=== PATIENT | male | born 1945 | race Caucasian/White ===

== ENCOUNTER 2017-11-09 08:21 | Outpatient (CLI) | payer MEDICARE, OTHER ==
[~2017-11-09] VITALS: Ht 170.2 cm; Wt 132.5 kg
--- NOTE | ~2017-11-09 | OP ---
PATIENT NAME: RAVI BAH JR MEDICAL RECORD: [id number] :47 LOCATION:D.CAT ADMISSION DATE: SURGEON: JOHN ANTOINE MD DATE OF OPERATION: 11/09/2017 PROCEDURES: 1. PTCA stent left main. 2. PTCA stent RCA. 3. Selective coronary angiography. 4. Intravascular ultrasound of the RCA. INDICATION: Unstable angina and coronary artery disease. PROCEDURE IN DETAIL: After informed consent was obtained and after detailed explanation of risks, benefits, as well as alternative therapies, the patient elected to proceed with angiogram and angioplasty. The right femoral area was prepped and draped in normal sterile fashion. Right femoral artery was cannulated via modified Seldinger technique with placement of 6-Togolese sheath. All catheters exchanged through this sheath. FINDINGS: The left main is greater than 80% stenosed. This was addressed with a 4.0 x 12 mm [place] stent. Result was 0% residual stenosis. The right coronary underwent intravascular ultrasound revealing 2 areas of greater than 70% stenosis. These were covered with a 3.0 x 38 mm Anthony. Result was 0% residual stenosis. IMPRESSION: Successful percutaneous transluminal coronary angioplasty stent of the left main and right coronary artery going from 70% to 80% initial stenosis to 0% residual stenosis. TRANSINT:[id number] Voice Confirmation ID: [id number] DOCUMENT ID: [id number] JOHN ANTOINE MD at 1056 CC: [id number] DICTATION DATE: 11/09/17 1234 DIRECTOR [place]: 11/09/17 1243 DEP CLI 11/10/17 [place] [id number]
--- NOTE | ~2017-11-09 | HP ---
PATIENT: RAVI BAH JR MEDICAL RECORD: [id number] ACCOUNT: [id number] LOCATION:GER[place] : 47 ADMISSION DATE: 11/09/17 HISTORY AND PHYSICAL EXAMINATION DIAGNOSES: 1. Angina. 2. Shortness of breath, dyspnea on exertion. 3. Coronary artery disease. 4. Cardiomyopathy. 5. Hypertension. 6. Obesity. HISTORY OF PRESENT ILLNESS: This is a gentleman who presents with continued anginal symptomatology, shortness of breath. He underwent cardiac catheterization in [place] and was told that he had no problem. Reviewing the cath film, he has severe 3-vessel coronary artery disease of the RCA, left circumflex, and left main. Clearly, this is the etiology of his problem. PHYSICAL EXAMINATION: GENERAL APPEARANCE: Well-nourished, well-developed, appears stated age. Level of distress, comfortable. PSYCHIATRIC: Mental status, alert, normal affect. Orientation, oriented to time, place and person. EYES: Lids and conjunctiva, noninjected. No discharge, no pallor. ENT: Lips, teeth, gums, normal dentition. Oropharynx, no cyanosis, no pallor. NECK: Carotid arteries, bilateral normal upstroke, no bruits, no thrills. JUGULAR VEINS: No jugular venous pressure or distention. CERVICAL LYMPH NODES: Nontender, nonenlarged. THYROID: Not enlarged. Nontender. No nodules. LUNGS: Respiratory effort, unlabored. CHEST: Normal curvature. No thoracic deformity. No chest wall tenderness. Percussion, resonant. Auscultation, clear. No wheezes, no rales, no rhonchi. CARDIOVASCULAR: Precordial exam, nondisplaced. No heaves or pericardial thrills. Rate and rhythm, regular. Heart sounds, normal S1, normal S2. No S3, no gallop, no rub. Systolic murmur, not heard. Diastolic murmur, not heard. EXTREMITIES: No cyanosis, no edema. Peripheral pulses, full and equal in all extremities, except as noted. No bruits appreciated. ABDOMEN: Soft, nondistended. Normal aorta. No bruit. Nontender. No masses. Liver, nontender, no hepatomegaly. Spleen, nontender, no splenomegaly. MUSCULOSKELETAL: No joint tenderness. No joint swelling. No erythema. NEUROLOGICAL: Normal gait, normal strength, normal tone. SKIN: Warm and dry. REVIEW OF SYSTEMS: The patient reports easy bruising but reports no swollen glands. The patient reports no fever, no night sweats, no significant weight gain, no significant weight loss. No significant exercise tolerance. The patient reports no dry eyes, no irritation, no vision change. Patient reports no difficulty hearing and no ear pain. Patient reports no frequent nose bleeds or nose and sinus problems. Patient reports on arm pain on exertion. No shortness of breath while lying down. No history of heart murmur. Patient reports no cough, no wheezing or coughing up blood. Patient reports no abdominal pain, no vomiting. Normal appetite. No diarrhea and not vomiting blood. No nausea and no constipation. Patient reports no incontinence. No difficulty urinating. No hematuria. No increased frequency. Patient reports HISTORY AND PHYSICAL [id number] RAVI BAH JR no muscle aches. No weakness, no arthralgias, no back pain. No swelling of the extremities. Patient reports no abnormal mole, no jaundice, no rashes. Reports no loss of consciousness. No weakness and no numbness. No seizures, dizziness, or headaches. The patient reports no depression, no sleep disturbance, feeling safe in a relationship and no alcohol abuse. Patient reports on fatigue. Reports no runny nose or sinus pressure. No itching, no hives, and no frequent sneezing. OVERALL IMPRESSION: We will proceed with transcatheter revascularization in a staged fashion. TRANSINT:[id number] Voice Confirmation ID: [id number] DOCUMENT ID: [id number] JOHN ANTOINE MD at 1056 CC: [id number] DICTATION DATE: 11/09/17 1004 FINANCIAL OPERATIONS CLERK: 11/09/17 1029 DEP CLI 11/10/17 [place] [id number] [place] [id number]
--- NOTE | ~2017-11-09 | HEMODYNAMI ---
PATIENT:RAVI BAH JR MEDICAL RECORD: [id number] : 47 LOCATION:DJay JayCAT ADMISSION DATE: 11/09/17 Generatedon:11/09/201712:37 Patient name: RAVI BAH Patient #: [id number] SSN: : 1945 Date of study: 11/09/2017 Page: Of Hemodynamic Procedure Report Patient Data Patient Demographics Procedure consent was obtained First Name: RAVI Gender: Male Last Name: NIURKA Suffix: [facility] Initial: MARCELA : 1945 Patient #: [id number] Age: 72 year(s) Race: Unknown Additional ID: [id number] Contact details Address: [address] [place] State: [place] City: [place] Zip code: [address] Past Medical History Allergies Allergen Reaction Date Comments Reported IV contrast dye 11/09/2017 Admission Admission Data Admission Date: 11/09/2017 Admission Time: 8:21 Procedure Procedure Types Cath Procedure Diagnostic Procedure Sedation Charges Moderate Sedation up to 15 minutes PCI Procedure Coronary Stent Coronary Stent Initial x2 Procedure Description Procedure Date Procedure Date: 11/09/2017 Procedure Start Time: 12:13 Procedure End Time: 12:36 Procedure Staff Name Function Jake Hamilton MD Performing Physician Genet Wooten RT Monitor Shyam King RN Nurse Ho oDwd RT Scrub Procedure Data Cath Procedure Fluoroscopy Diagnostic fluoroscopy Total fluoroscopy Time: 3.7 time: 3.7 min min Diagnostic fluoroscopy Total fluoroscopy dose: 781 dose: 781 mGy mGy Contrast Material Contrast Material Type Amount (ml) Isovue 300 92 Entry Location Entry Primary Successful Side Size Upsize Upsize Entry Closure Succes sful Closure Location (Fr) 1 (Fr) 2 (Fr) Remarks Device Remarks Femoral Right 5 Fr 6 Fr Exoseal artery Short Estimated blood loss: 10 ml Procedure Complications No complications Procedure Medications Medication Administration Route Dosage 0.9% NaCl I.V. 100 ml/hr Oxygen etCO2 Nasal cannula 6 l/min Heparin Flush Bag added to field 2 bags (1000units/500ml NS) Lidocaine 2% added to field 20 Versed I.V. 1 mg Fentanyl I.V. 50 mcg Heparin Bolus I.V. 4000 units Lasix I.V. 40 mg Hemodynamics Rest Heart Rate: 84 (bpm) Snapshots Pre Cath Intra NCS Post Cath Vital Signs Time Heart Resp SPO2 etCO2 NIBP (mmHg) Rhythm Pain Sedation Rate (ipm) (%) (mmHg) Status Level (bpm) 12:07:18 83 23 95 23.8 189/113(153) NSR 0 (11) 10(A) , No pain 12:12:07 80 22 94 28.3 155/93(118) NSR 0 (11) 10(A) , No pain 12:16:54 80 23 94 25.4 149/89(109) NSR 0 (11) 10(A) , No pain 12:21:40 81 21 92 25.4 163/91(113) NSR 0 (11) 10(A) , No pain 12:26:31 85 19 94 27.6 170/93(119) NSR 0 (11) 10(A) , No pain 12:31:18 82 21 93 30.6 164/98(124) NSR 0 (11) 10(A) , No pain 12:36:17 82 25 94 27.6 Measuring NSR 0 (11) 10(A) , No pain 12:36:42 82 24 92 26.8 172/102(135) NSR 0 (11) 10(A) , No pain Medications Time Medication Route Dose Verified Delivered Reason Notes Effectiveness by by 12:04:04 0.9% NaCl I.V. 100 Shyam Shyam Per physician ml/hr Fernando King RN RN 12:04:25 Oxygen etCO2 6 Shyam Shyam Per physician Nasal l/min Fernando King cannula RN RN 12:04:37 Heparin Flush added 2 Shyam Shyam used for Bag to bags Fernando King procedure (1000units/500ml field RN RN NS) 12:04:50 Lidocaine 2% added 20ml Shyam Shyam for local to vial Lorigan Kathyigan anesthetic field TYLER RN 12:09:13 Versed I.V. 1 mg Shyam Shyam for sedation Fernando King RN RN 12:09:22 Fentanyl I.V. 50 Hsyam Shyam for sedation mcg Fernando Knig RN RN 12:20:09 Heparin Bolus I.V. 4000 Shyam Shyam for units Fernando King anticoagulation RN RN 12:34:24 Lasix I.V. 40 mg Shyam Shyam Per physician Fernando King RN regional engineer Log Time Note 11:45:35 Genet Wooten RT(R) sent for patient. Start room use. 11:45:36 Time tracking: Regular hours 11:45:40 Plan of Care:Hemodynamics will remain stable., Cardiac rhythm will remain stable., Comfort level will be maintained., Respiratory function will remain adequate., Patient/ family verbilizes understanding of procedure., Procedure tolerated without complication., Recovers from procedure without complications.. 11:52:03 Patient received from Pre/Post Procedure Room to CCL 1 Alert and oriented. Tansferred to table in Supine position. 11:52:05 Warm blankets applied, and ilda hugger turned on for patient comfort. 11:52:05 Correct patient and procedure confirmed by team. 11:52:07 Signed procedure consent form obtained from patient. 11:52:08 ECG and BP/O2 sat monitors applied to patient. 11:52:16 H&P Date Dictated: 11/09/2017 Within 30 days and on chart., H&P Addendum completed by physician on day of procedure. (MUST COMPLETE FOR ALL OUTPATIENTS). 12:01:31 Vital chart was started 12:02:39 Rhythm: sinus rhythm 12:03:18 Full Disclosure recording started 12:03:18 Pre-procedure instructions explained to patient. 12:03:19 Pre-op teaching completed and patient verbalized understanding. 12:03:20 Family in patients room. 12:03:22 Patient NPO since Midnight. 12:03:32 Patient allergic to IV contrast dye 12:03:36 Is the patient allergic to Iodine/contrast media? Yes. 12:03:37 Was the patient premedicated? Yes 12:03:38 Is patient on blood thinner?Yes 12:03:40 ACC The patient was administered the following blood thiners within the last 24 hours: ACCEffient 12:03:42 Patient diabetic? Yes. 12:03:43 If diabetic: On Metformin? No 12:03:46 Previous problem with sedation/anesthesia? No ? 12:03:47 Snore? Yes 12:03:48 Sleep apnea? Yes 12:03:49 Deviated septum? No 12:03:51 Opens mouth fully? Yes 12:03:51 Sticks out tongue? Yes 12:03:54 Airway obstruction? No ? 12:03:56 Dentures? Yes OUT 12:04:00 Pre procedure: right dorsailis pedis pulse 1+ Palpable, but thready & weak; easily obliterated 12:04:02 Patient pain scale 0/10 .. 12:04:04 0.9% NaCl 100 ml/hr I.V. was administered by Shyam King RN; Per physician; 12:04:09 IV patent on arrival in left forearm with 0.9% NaCl at [facility]. 12:04:11 Lab results completed and on chart. 12:04:14 Right groin area was prepped with chlora-prep and draped in sterile fashion 12:04:15 Alarms reviewed by R. N. 12:04:15 Sharps counted by scrub and verified by R.N. 12:04:25 Oxygen 6 l/min etCO2 Nasal cannula was administered by Shyam King RN; Per physician; 12:04:37 Heparin Flush Bag (1000units/500ml NS) 2 bags added to field was administered by Shyam King RN; used for procedure; 12:04:50 Lidocaine 2% 20ml vial added to field was administered by Shyam King RN; for local anesthetic; 12:06:56 Baseline sample Acquired. 12:07:27 Use device set CATH PACK 12:07:29 ACIST Syringe (42067) opened to sterile field. 12:07:29 ACIST Hand Control (42949) opened to sterile field. 12:07:30 ACIST Manifold (03320) opened to sterile field. 12:07:30 Medline Cath Pack ([id number]) opened to sterile field. 12:07:31 Bag Decanter (2002) opened to sterile field. 12:07:31 DIAGNOSTIC WIRE .035 260cm J wire (253401) opened to sterile field. 12:07:42 PERCUTANEOUS ENTRY 19GA needle opened to sterile field. 12:07:46 Use device set TAUTH PCI 12:07:48 INFLATOR Merit BasixCompak (XG6821) opened to sterile field. 12:08:50 Final Timeout: patient, procedure, and site verified with staff and physician. All members of the team are in agreement. 12:08:52 Right groin site verified by team. 12:08:54 Physical assessment completed. ASA score P 2 - A patient with mild systemic disease as per Jake Hamilton MD. 12:08:58 Sedation plan: IV Moderate Sedation Medication:Versed, Fentanyl 12::13 Versed 1 mg I.V. was administered by Shyam Kign RN; for sedation; 12:: Fentanyl 50 mcg I.V. was administered by Shyam King RN; for sedation; 12::52 Zero performed for pressure channel P1 12:13:23 Procedure started. 12:13:26 Local anesthetic to right femoral artery with Lidocaine 2% by Jake Hamilton MD.INITIAL ACCESS ONLY 12:14:03 A 5 Fr sheath was inserted into the Right Femoral artery 12:16:38 AMPLATZ Super Stiff 75cm wire ([id number]) opened to sterile field. 12:16:47 Amplatz wire advanced. 12:17:11 SHEATH 5Fr Prelude ([id number]) opened to sterile field. 12:17:38 Sheath upsized to a 6 Fr Short. 12:18:01 GUIDE 6FR XB 3.5 SH catheter ([id number]) opened to sterile field. 12:18:06 6 Fr XB 3.5 SH guide catheter was inserted over the wire 12:18:36 1st XB 3.5 SH was kinked 12:18:44 GUIDE 6FR XB 3.5 SH catheter ([id number]) opened to sterile field. 12:18:55 CHOICE PT Extra Support 182cm wire ([id number]) opened to sterile field. 12:19:03 Choice PT ES wire advanced. 12:20:09 Heparin Bolus 4000 units I.V. was administered by Shyam Kign RN; for anticoagulation; 12:20:46 Place stent Inflation Number: 1 A JANI RX 4.0 x 12 stent ([id number]) was prepped and advanced across the LMCA. The stent was deployed at 15 MARLENE for 0:06 (min:sec). 12:21:24 Inflation number: 2 The stent balloon was then re-inflated across the LMCA to 17 MARLENE for 0:06 (min:sec). 12:21:55 Balloon removed over the wire. 12:21:59 Wire removed. 12:22:01 Guide catheter removed. 12::27 GUIDE 6FR AR 2.0 SH catheter ([id number]) opened to sterile field. 12:22:35 6 Fr AR 2.0 SH guide catheter was inserted over the wire 12:23:54 CHOICE PT ES wire advanced. 12:24:08 [place] IVUS Catheter (13608C) opened to sterile field. 12:24:52 CALLED FOR BED 12:24:55 IVUS catheter advanced over wire. 12:25:07 IVUS pass to RCA lesion performed. 12:25:25 IVUS catheter removed over wire. 12:27:24 Place stent Inflation Number: 1 A JANI RX 3.0 x 38 stent ([id number]) was prepped and advanced across the Mid RCA. The stent was deployed at 17 MARLENE for 0:07 (min:sec). 12:27:33 Stent catheter was removed intact over wire. 12:27:36 Wire removed. 12:27:37 Guide catheter removed. 12:27:47 Sheath removed intact; hemostasis achieved with Exoseal to the Right Femoral artery. 12:27:50 Procedure ended.(Physican Out) 12::59 Fluoroscopy time 03.70 minutes. 12:28:03 Fluoroscopy dose: 781 mGy 12:28:03 Flurop Dose total: 781 12:28:06 Contrast amount:Isovue 300 92ml. 12:28:07 Sharps counted by scrub and verified by R.N. 12:28:08 Insertion/operative site no bleeding no hematoma. 12:28:11 Post-op/insertion site Right Femoral artery dressed using a 4 x 4 and Tegaderm. 12:28:14 Post right femoral artery:stable, clean and dry 12:28:16 Post Procedure Pulses reassessed and unchanged 12:28:19 Post-procedure physical assessment completed. ASA score P 2 - A patient with mild systemic disease as per Jake Hamilton MD. 12:28:22 Post procedure rhythm: unchanged. 12:28:27 Estimated blood loss: 10 ml 12:28:28 Post procedure instruction explained to patient.Patient verbalizes understanding. 12:28:28 Patient needs reinforcement of post procedure teaching. 12:30:05 Procedure type changed to Cath procedure, Diagnostic procedure, Sedation Charges, Moderate Sedation up to 15 minutes, PCI procedure, Coronary Stent, Coronary Stent Initial x2 12:30:10 Procedure Complication : No complications 12:30:14 See physician's report for complete and final results. 12:30:26 EXOSEAL 6Fr (EX600) opened to sterile field. 12:34:12 SHEATH 6Fr Prelude ([id number]) opened to sterile field. 12:34:24 Lasix 40 mg I.V. was administered by Shyam King RN; Per physician; 12:35:02 PATIENT GOING TO ROOM 2116 12:35:08 Procedure and supply charges have been captured, reviewed, submitted and are correct. 12:36:44 Vital chart was stopped 12:36:47 Report given to PCU. 12:36:51 Patient transfered to PCU with Bed. 12:36:58 Procedure ended. 12:36:58 Full Disclosure recording stopped 12:37:27 End room use (Document Last) Intervention Summary Intervention Notes Time ActionType Lesion and Equipment Used Action# Pressure Duration Attributes 12:20:46 Place stent LMCA JANI RX 4.0 x 1 15 00:06 12 stent ([id number]) 12:21:24 Reinflate LMCA JANI RX 4.0 x 2 17 00:07 stent 12 stent balloon ([id number]) 12:27:24 Place stent Mid RCA JANI RX 3.0 x 1 17 00:07 38 stent ([id number]) Device Usage Item Name Manufacture Quantity Catalog Number Hospital Part Current M inimal Lot# / Charge Number Stock Stock Serial# Code ACIST Syringe Acist 1 53797 396240 625184 253025 2 0 (14447) Medical Systems Inc ACIST Hand Acist 1 46999 359738 974647 824944 5 Control Medical (67484) Systems Inc ACIST Manifold Acist 1 80439 234116 867285 182077 5 (84740) Medical Systems Inc Medline Cath Cardinal 1 [id number] 247191 16457 377377 5 Spor ([id number]) Bag Decanter Microtek 1 979642 84569 002520 5 () Medical Inc. DIAGNOSTIC [place] 1 257987 224608 585876 923778 3 0 WIRE .035 260cm J wire (478303) PERCUTANEOUS Cook Medical 1 V86169 718978 852626 5 ENTRY 19GA needle INFLATOR Merit Merit 1 RM3083 423972 586274 448243 1 5 [facility] (EJ3493) AMPLATZ Super Alpine 1 [id number] 960967 690170 608989 5 Stiff 75cm Scientific wire ([id number]) SHEATH 5Fr Merit 1 [id number] 494149 877968 962905 5 Prelude Medical ([id number]) GUIDE 6FR XB Cardinal 2 [id number] 258191 515824 367413 2 3.5 SH Health catheter ([id number]) CHOICE PT Alpine 1 [id number] 179839 236058 543767 5 Extra Support Scientific 182cm wire ([id number]) JANI RX 4.0 x Medtronic 1 [id number] 185342 5236282 984577 5 [id number] 12 stent ([id number]) GUIDE 6FR [place] Medtronic 1 [id number] 977816 55951 605988 1 2.0 SH catheter ([id number]) [place] 1 [id number] 051644 713512 682513 [address] [place] IVUS Catheter ([id number]) JANI RX 3.0 x Medtronic 1 [id number] 447064 8492375 220965 5 [id number] 38 stent ([id number]) EXOSEAL 6Fr Cardinal 1 EX600 250438 019507 028309 1 0 (EX600) Health SHEATH 6Fr Merit 1 [id number] 729585 751631 523517 5 Prelude Medical ([id number]) Signature Audit [place] Stage Time Signature Unsigned Intra-Procedure 11/09/2017 Genet 12:37:56 PM Counts RT(R) Signatures Monitor : Genet Signature : Counts RT Date : Time : [facility] [address] [place] [address]
[2017-11-09] MEDS ORDERED: COREG 3.1253.125 MG PO (09:36)
[2017-11-09] MEDS ORDERED: NITROQUICK0.4 MG SL (09:36)
[2017-11-09] MEDS ORDERED: ENTRESTO 24 MG1 EACH PO ×2 (09:37→09:43)
[2017-11-09] MEDS ORDERED: EFFIENT5 MG PO (09:39)
[2017-11-09] MEDS ORDERED: BAYER CHEWABLE81 MG PO (09:39)
[2017-11-09] MEDS ORDERED: KLOR-CON M2020 MEQ PO (09:40)
[2017-11-09] MEDS ORDERED: LASIX40 MG PO (09:40)
[2017-11-09] MEDS ORDERED: GLIMEPIRIDE1 MG PO (09:41)
[2017-11-09 09:42] LABS: BASOPHILS 0.1 % (0-2); EOSINOPHILS 2.8 % (0-7); HEMATOCRIT 40.7 % (42.0-54.0); HEMOGLOBIN 13.7 g/dL (13.5-17.5); IMMATURE GRANULOCYTES 0.7 % (0-5); LYMPHOCYTES 26.7 % (15-50); MCH 31.1 pg (26.0-34.0); MCHC 33.7 g/dL (31.0-37.0); MCV 92.3 fL (80.0-100.0); MEAN PLATELET VOLUME 10.4 fL (7.4-10.4); MONOCYTES 10.4 % (2-11); NEUTROPHILS 59.3 % (40-80); PLATELET COUNT 228 10x3/uL (130-400); RBC 4.41 10x6/uL (4.20-6.10); RDW 12.4 % (11.5-14.5); WBC 9.8 10x3/uL (4.8-10.8)
[2017-11-09] MEDS ORDERED: BREO ELLIPTA 21 EACH (09:42)
[2017-11-09] MEDS ORDERED: [UNRECOGNIZED DRUG - OTHER] PO (09:42)
[2017-11-09] MEDS ORDERED: RED YEAST RICE600 MG PO (09:43)
[2017-11-09 09:56] LABS: ANION GAP 14.1 mmol/L (8-16); CALCIUM 8.6 mg/dL (8.5-10.1); CARBON DIOXIDE 26.9 mmol/L (21.0-32.0); CREATININE - SERUM 1.2 mg/dL (0.6-1.3)
[2017-11-09 10:01] VITALS: BP 155/92; BMI 45.5
[2017-11-09 13:19] VITALS: BP 149/81; Ht 170.2 cm; Wt 132.5 kg
[2017-11-09 16:59] VITALS: BP 151/77
[2017-11-09 19:00] VITALS: BP 140/71
[2017-11-10 00:26] VITALS: BP 131/66
[2017-11-10 04:00] VITALS: BP 154/78
[2017-11-10 09:24] VITALS: BP 168/99
== END 2017-11-10 09:15 | disposition home or self-care (01) ==
LOC: D.CATH 08:21 → D.M2 12:45 → D.CATH 11-10 09:15
PROVIDERS: Internal Medicine Interventional Cardiology
DX: I25.110 Atherosclerotic heart disease of native coronary artery with unstable angina pectoris (principal); I11.9 Hypertensive heart disease without heart failure; E66.9 Obesity, unspecified; Z68.42 Body mass index [BMI] 45.0-49.9, adult; Z01.812 Encounter for preprocedural laboratory examination
CPT/HCPCS: 92978; C9600 ×2

== ENCOUNTER 2017-12-11 16:40 | Inpatient (IN) | payer MEDICARE, OTHER ==
[2017-12-11] VITALS (8 sets, daily range): BP systolic 119–143; BP diastolic 59–78; BMI 45.0
[~2017-12-11] VITALS: Ht 170.2 cm; Wt 130.2 kg
--- NOTE | ~2017-12-11 | OP ---
PATIENT NAME: RAVI BAH JR MEDICAL RECORD: [id number] :47 LOCATION:D.VENUSI D.CV02 ADMISSION DATE:12/11/17 SURGEON: JOHN ANTOINE MD DATE OF OPERATION: 12/12/2017 PROCEDURES: 1. PTCA stent left circumflex. 2. PTCA stent LAD diagonal. 3. Left heart catheterization. 4. Selective angiography. 5. Left ventriculogram. 6. Bilateral selective renal angiography. INDICATION: Unstable angina and coronary artery disease. PROCEDURE IN DETAIL: After informed consent was obtained and after detailed explanation of risks, benefits as well as alternative therapies, the patient elected to proceed with angiogram and angioplasty. The right femoral area was prepped and draped in normal sterile fashion. Right femoral artery was cannulated via modified Seldinger technique with placement of 6-Emirati sheath. All catheters exchanged through this sheath. FINDINGS: 1. 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 No significant renal artery stenosis. 2. Left renal artery: The left renal artery is a solitary artery off the aorta with no significant pressure damping at the ostium. No significant renal artery stenosis. Left ventriculogram performed in standard 30-degree BURRELL view, reveals severe global hypokinesis, ejection fraction 25%. SELECTIVE CORONARY ANGIOGRAPHY: 1. Left main has previously placed stent that is widely patent. 2. Left anterior descending is widely patent. There is a relatively large diagonal system that is 100% occluded. This is a chronic total occlusion. 3. The left circumflex has a 90% stenosis proximally. There is first obtuse marginal that is totally occluded. This is a long chronic total occlusion. 4. Right coronary artery is widely patent, previously placed stents are widely patent. PTCA STENT OF THE LEFT CIRCUMFLEX: We addressed the ostium of the circumflex that was 90% stenosed with a 3.0 x 8 mm Anthony stent. We then turned our attention to the diagonal. PTCA STENT OF THE LAD DIAGONAL: The diagonal was addressed with a 2.0 x 30 mm [place] stent. Result was 0% residual throughout. OVERALL IMPRESSION: 1. Successful percutaneous transluminal coronary angioplasty stent of the left circumflex ostium going from 90% initial stenosis to 0% residual stenosis. 2. Successful percutaneous transluminal coronary angioplasty stent of the LAD diagonal going from 100% initial stenosis to 0% residual stenosis. OPERATIVE REPORT [id number] RAVI BAH JR TRANSINT:[id number] Voice Confirmation ID: [id number] DOCUMENT ID: [id number] JOHN ANTOINE MD at 1848 CC: [id number] DICTATION DATE: 12/12/17 1024 ASIC ENGINEER: 12/12/17 1451 DIS IN 12/13/17 [place] [id number] [place] [id number]
--- NOTE | ~2017-12-11 | HEMODYNAMI ---
PATIENT:RAVI BAH JR MEDICAL RECORD: [id number] : 47 LOCATION:[facility] ADMISSION DATE: 12/11/17 Generatedon:12/12/201710:27 Patient name: RAVI BAH Patient #: [id number] SSN: : 1945 Date of study: 12/12/2017 Page: Of Hemodynamic Procedure Report Patient Data Patient Demographics Procedure consent was obtained First Name: RAVI Gender: Male Last Name: NIURKA Suffix: Jr Francis Initial: MARCELA : 1945 Patient #: [id number] Age: 72 year(s) Race: Unknown Additional ID: [id number] Contact details Address: [address] [place] State: [place] City: [place] Zip code: [address] Past Medical History Allergies Allergen Reaction Date Comments Reported IV contrast dye 11/09/2017 Other allergy 12/12/2017 Iodoine dye Admission Admission Data Admission Date: 12/11/2017 Admission Time: 16:40 Room #: D.CV02 Lab Results Lab Result Date: 12/12/2017 Lab Result Time: 0:00 Biochemistry Name Units Result Min Max BUN mg/dl 15 --(--*-)-- 7 18 Creatinine mg/dl 1.1 --(--*-)-- 0.6 1.3 CBC Name Units Result Min Max Hemoglobin g/dl 12.6 -*(----)-- 13.5 17.5 Procedure Procedure Types Cath Procedure Diagnostic Procedure LHC LHC w/Coronaries Sedation Charges Moderate Sedation up to 30 minutes PCI Procedure Coronary Stent Coronary Stent Initial Coronary Stent Additional Peripheral Cath Diagnostic Procedure Abd/Extremity Renal Bilat Renal Arteriogram Procedure Description Procedure Date Procedure Date: 12/12/2017 Procedure Start Time: 9:40 Procedure End Time: 10:25 Procedure Staff Name Function Jake Hamilton MD Performing Physician Odilia Monroe RT Scrub Jose Armando Hernadez RN Nurse Oren Taylor RN Nurse Ho Dowd RT Monitor Procedure Data Cath Procedure Fluoroscopy Diagnostic fluoroscopy Total fluoroscopy Time: time: 16.4 min 16.4 min Diagnostic fluoroscopy Total fluoroscopy dose: dose: 2256 mGy 2256 mGy Contrast Material Contrast Material Type Amount (ml) Isovue 370 149 Entry Location Entry Primary Successful Side Size Upsize Upsize Entry Closure Succes sful Closure Location (Fr) 1 (Fr) 2 (Fr) Remarks Device Remarks Femoral Right 5 Fr 6 Fr Exoseal artery Short Estimated blood loss: 10 ml Diagnostic catheters Device Type Used For End Catheter Placement MULTIPACK Pigtail 5 Fr Procedure catheter MULTIPACK JL 4.0 5Fr Procedure catheter MULTIPACK 3DRC 5Fr Procedure catheter Procedure Complications No complications Procedure Medications Medication Administration Route Dosage Oxygen etCO2 Nasal cannula 2 l/min Heparin Flush Bag added to field 2 bags (1000units/500ml NS) 0.9% NaCl I.V. 100 ml/hr Fentanyl I.V. 50 mcg Versed I.V. 1 mg Fentanyl I.V. 50 mcg Versed I.V. 1 mg Fentanyl I.V. 25 mcg Heparin Bolus I.V. 5000 units Fentanyl I.V. 25 mcg Heparin Bolus I.V. 3000 units Benadryl I.V. 50 mg Hemodynamics Rest HGB: 12.6 (g/dl) Heart Rate: 83 (bpm) Pressure Samples Time Site Value (mmHg) Purpose Heart Use Rate(bpm) 9:42 LV 65/36,42 Snapshot 68 Snapshots Pre Cath Intra NCS Post Cath Vital Signs Time Heart Resp SPO2 etCO2 NIBP (mmHg) Rhythm Pain Sedation Rate (ipm) (%) (mmHg) Status Level (bpm) 9:11:29 82 19 94 0 143/80(105) NSR 0 (11) 10(A) , No pain 9:16:29 78 18 97 31.4 145/75(102) NSR 0 (11) 10(A) , No pain 9:21:21 73 18 90 29.2 119/70(91) NSR 0 (11) 10(A) , No pain 9:26:10 71 17 92 29.9 119/67(96) NSR 0 (11) 10(A) , No pain 9:31:03 71 18 93 27.7 119/62(89) NSR 0 (11) 10(A) , No pain 9:35:58 67 18 96 24 113/54(86) NSR 0 (11) 10(A) , No pain 9:40:47 67 17 94 29.9 115/67(86) NSR 0 (11) 10(A) , No pain 9:45:38 68 15 94 10.4 111/55(79) NSR 0 (11) 9(A) , No pain 9:50:28 67 17 95 25.5 119/53(92) NSR 0 (11) 9(A) , No pain 9:55:20 67 15 94 16.5 113/58(89) NSR 0 (11) 9(A) , No pain 10:00:10 67 16 95 30 127/61(86) NSR 0 (11) 9(A) , No pain 10:05:01 65 16 94 27.7 112/67(88) NSR 0 (11) 9(A) , No pain 10:09:52 65 16 97 11.2 112/62(85) NSR 0 (11) 9(A) , No pain 10:14:41 65 17 95 30 119/70(90) NSR 0 (11) 9(A) , No pain 10:18:38 61 17 96 29.2 126/64(82) NSR 0 (11) 9(A) , No pain 10:23:31 63 13 95 24.7 127/68(89) NSR 0 (11) 9(A) , No pain Medications Time Medication Route Dose Verified Delivered Reason Notes Effectiveness by by 9:13:26 Oxygen etCO2 2 Jake Lott Per physician Nasal l/min Alfonso Taylor RN cannula 9:13:34 Heparin Flush added 2 Jake Lott used for Bag to bags Alfonso Taylor RN procedure (1000units/500ml field NS) 9:13:44 0.9% NaCl I.V. 100 Jake Lott Per physician ml/hr Alfonso Taylor RN 9:19:20 Benadryl I.V. 50 mg Jake Lott Per physician Alfonso Taylor RN 9:40:15 Fentanyl I.V. 50 Jake Morrisseyy for sedation mcg Alfonso Taylor RN 9:40:21 Versed I.V. 1 mg Jake Lott for sedation Alfonso Taylor RN 9:42:07 Fentanyl I.V. 50 Jake Oren for sedation [facility] [place] Alfonso Taylor RN 9:42:10 Versed I.V. 1 mg Jake Lott for sedation Alfonso Taylor RN 9:45:41 Fentanyl I.V. 25 Jake Lott for sedation mcg Alfonso Taylor RN 9:49:41 Heparin Bolus I.V. 5000 Jake Lott for units Alfonso Taylor RN anticoagulation 10:07:03 Fentanyl I.V. 25 Jake Lott for sedation [facility] [place] Alfonso Taylor RN 10:08:21 Heparin Bolus I.V. 3000 Jake Lott for units Alfonso Taylor RN anticoagulation Procedure Log Time Note 8:47:12 Signed procedure consent form obtained from patient. 8:47:13 Time tracking: Regular hours (M-F 7:00 - 5:00) 8:47:18 Plan of Care:Hemodynamics will remain stable., Cardiac rhythm will remain stable., Comfort level will be maintained., Respiratory function will remain adequate., Patient/ family verbilizes understanding of procedure., Procedure tolerated without complication., Recovers from procedure without complications.. 8:48:31 Lab Result : BUN 15 mg/dl 8:48:31 Lab Result : Creatinine 1.1 mg/dl 8:48:31 Lab Result : Hemoglobin 12.6 g/dl 8:49:08 H&P Date Dictated: 12/11/2017 Within 30 days and on chart.. 8:49:43 Odilia Monroe RT(R) sent for patient. Start room use. 9:01:59 Patient received from CVICU to CCL 1 Alert and oriented. Tansferred to table in Supine position. 9:02:00 Warm blankets applied, and ilda hugger turned on for patient comfort. 9:02:01 Correct patient and procedure confirmed by team. 9:02:02 ECG and BP/O2 sat monitors applied to patient. 9:10:19 Vital chart was started 9:11:01 Baseline sample Acquired. 9:11:05 Rhythm: sinus rhythm 9:11:14 Full Disclosure recording started 9:11:18 Pre-procedure instructions explained to patient. 9:11:19 Pre-op teaching completed and patient verbalized understanding. 9:11:20 Family in patients room. 9:11:25 Patient NPO since Midnight. 9:11:50 Patient allergic to Other allergyIodoine dye 9:11:53 Is the patient allergic to Iodine/contrast media? Yes. 9:11:54 Was the patient premedicated? Yes 9:11:58 Is patient on blood thinner?Yes 9:12:02 ACC The patient was administered the following blood thiners within the last 24 hours: ACCEffient 9:12:07 Patient diabetic? Yes. 9:12:09 If diabetic: On Metformin? No 9:12:35 Previous problem with sedation/anesthesia? No ? 9:12:36 Snore? Yes 9:12:37 Sleep apnea? Yes 9:12:39 Deviated septum? No 9:12:39 Opens mouth fully? Yes 9:12:44 Sticks out tongue? Yes 9:12:47 Airway obstruction? No ? 9:12:51 Dentures? Yes OUT 9:12:54 Pre procedure: right dorsailis pedis pulse 2+ Normal; easily identifiable; not easily obliterated 9:12:56 Patient pain scale 0/10 ?. 9:13:06 IV patent on arrival in right forearm with 0.9% NaCl at KVO. 9:13:10 Lab results completed and on chart. 9:13:13 Right groin area was prepped with chlora-prep and draped in sterile fashion 9:13:14 Alarms reviewed by R. N. 9:13:15 Sharps counted by scrub and verified by R.N. 9:13:17 Use device set Femoral Dx 9:13:18 ACIST Syringe (34638) opened to sterile field. 9:13:19 Bag Decanter () opened to sterile field. 9:13:20 ACIST Hand Control (31144) opened to sterile field. 9:13:21 ACIST Manifold (40919) opened to sterile field. 9:13:23 Tegaderm 4 x 4 (1626W) opened to sterile field. 9:13:23 PERCUTANEOUS ENTRY 19GA needle opened to sterile field. 9:13:26 Oxygen 2 l/min etCO2 Nasal cannula was administered by Oren Taylor RN; Per physician; 9:13:26 Medline Cath Pack ([id number]) opened to sterile field. 9:13:28 DIAGNOSTIC WIRE .035 260cm J wire (205491) opened to sterile field. 9:13:29 DIAGNOSTIC Multipack 5Fr catheter set (SY0503) opened to sterile field. 9:13:31 SHEATH Prelude 5Fr 0.035 (NTL-3C-68-035) opened to sterile field. 9:13:34 Heparin Flush Bag (1000units/500ml NS) 2 bags added to field was administered by Oren Taylor RN; used for procedure; 9:13:44 0.9% NaCl 100 ml/hr I.V. was administered by Oren Taylor RN; Per physician; 9:13:48 Physician paged 9:17:32 Zero performed for pressure channel P1 9:19:20 Benadryl 50 mg I.V. was administered by Oren Taylor RN; Per physician; 9:38:01 Physician arrived 9:38:01 --------ALL STOP TIME OUT------ 9:38:02 Final Timeout: patient, procedure, and site verified with staff and physician. All members of the team are in agreement. 9:38:03 Right groin site verified by team. 9:38:06 Physical assessment completed. ASA score P 2 - A patient with mild systemic disease as per Jake Hamilton MD. 9:38:08 Sedation plan: IV Moderate Sedation Medication:Versed, Fentanyl 9:40:15 Fentanyl 50 mcg I.V. was administered by Oren Taylor RN; for sedation; 9:40:21 Versed 1 mg I.V. was administered by Oren Taylor RN; for sedation; 9:40:47 Procedure started. 9:40:51 Local anesthetic to right femoral artery with Lidocaine 2% by Jake Hamilton MD.INITIAL ACCESS ONLY 9:40:59 A 5 Fr sheath was inserted into the Right Femoral artery 9:42:07 Fentanyl 50 mcg I.V. was administered by Oren Taylor RN; for sedation; 9:42:10 Versed 1 mg I.V. was administered by Oren Taylor RN; for sedation; 9:42:28 A MULTIPACK Pigtail 5 Fr catheter was advanced over the wire and used for Procedure. 9:43:09 LV gram done using BURRELL 9:43:57 Injector settings: Ml/sec: 10., Volume: 20, 9:44:02 EF : 25 % 9:44:06 Catheter exchanged over wire. 9:44:13 A MULTIPACK JL 4.0 5Fr catheter was advanced over the wire and used for Procedure. 9:44:46 LCA angiography performed. 9:45:16 Catheter exchanged over wire. 9:45:20 A MULTIPACK 3DRC 5Fr catheter was advanced over the wire and used for Procedure. 9:45:41 Fentanyl 25 mcg I.V. was administered by Oren Taylor RN; for sedation; 9:46:00 RCA angiography performed. 9:46:19 Left renal angiography performed. 9:46:26 Right renal angiography performed. 9:47:32 SHEATH Prelude 6Fr 0.035 (EGT-1A-87-035) opened to sterile field. 9:48:48 CHOICE PT Extra Support J 300cm guide wire ([id number]) opened to sterile field. 9:49:02 INFLATOR Merit BasixCompak (AG0128) opened to sterile field. 9:49:08 Catheter removed. 9:49:17 Sheath upsized to a 6 Fr Short. 9:49:41 Heparin Bolus 5000 units I.V. was administered by Oren Taylor RN; for anticoagulation; 9:49:49 GUIDE 6FR XB 4.0 catheter ([id number]) opened to sterile field. 9:49:56 6 Fr XB 4 guide catheter was inserted over the wire 9:53:29 CHOCIE PT wire advanced. 9:53:30 Wire advanced across lesion. 9:54:41 Inflate balloon Inflation number: 1 A EMERGE OTW 1.5 x 15 balloon ([id number]) was prepped and advanced across the Prox CX, then inflated to 21 MARLENE for 0:10 (min:sec). 9:54:56 Balloon removed over the wire. 9:56:31 Inflate balloon Inflation number: 2 A EMERGE OTW 3.0 x 12 balloon ([id number]) was prepped and advanced across the Prox CX, then inflated to 13 MARLENE for 0:10 (min:sec). 9:56:45 Inflation number: 3 The EMERGE OTW 3.0 x 12 balloon ([id number]) was reinflated across the Prox CX, to 13 MARLENE for 0:10 (min:sec). 9:57:45 Balloon removed over the wire. 9:59:02 CHOICE PT Extra Support 182cm wire ([id number]) opened to sterile field. 9:59:13 Place stent Inflation Number: 4 A JANI OTW 3.0 x 08 stent ([id number]) was prepped and advanced across the Prox CX. The stent was deployed at 13 MARLENE for 0:10 (min:sec). 10:00:18 Wire removed. 10:00:30 CHOICE PT Extra Support J 300cm guide wire ([id number]) opened to sterile field. 10:00:41 CHOICE PT wire advanced. 10:03:32 The EMERGE OTW 1.5 x 15 balloon ([id number]) was advanced and then removed because of failure to cross lesion 10:07:03 Fentanyl 25 mcg I.V. was administered by Oren Taylor RN; for sedation; 10:07:12 Inflation number: 1 The EMERGE OTW 3.0 x 12 balloon ([id number]) was reinflated across the 1st Diag, to 15 MARLENE for 0:10 (min:sec). 10:07:21 Inflation number: 2 The EMERGE OTW 3.0 x 12 balloon ([id number]) was reinflated across the 1st Diag, to 15 MARLENE for 0:10 (min:sec). 10:08:12 Balloon removed over the wire. 10:08:21 Heparin Bolus 3000 units I.V. was administered by Oren Taylor RN; for anticoagulation; 10:09:52 Inflate balloon Inflation number: 3 A EMERGE OTW 1.5 x 15 balloon ([id number]) was prepped and advanced across the 1st Diag, then inflated to 20 MARLENE for 0:10 (min:sec). 10:10:05 Inflation number: 6 The EMERGE OTW 1.5 x 20 balloon ([id number]) was reinflated across the 1st Diag, to 13 MARLENE for 0:10 (min:sec). 10:10:05 Inflation number: 5 The EUPHORA 2.0 x 20 Balloon ([id number]) was reinflated across the 1st Diag, to 15 MARLENE for 0:10 (min:sec). 10:10:14 Inflate balloon Inflation number: 4 A EUPHORA 2.0 x 20 Balloon ([id number]) was prepped and advanced across the 1st Diag, then inflated to 15 MARLENE for 0:10 (min:sec). 10:10:28 Inflation number: 6 The EMERGE OTW 1.5 x 20 balloon ([id number]) was reinflated across the 1st Diag, to 13 MARLENE for 0:10 (min:sec). 10:10:43 Inflation number: 8 The EMERGE OTW 1.5 x 20 balloon ([id number]) was reinflated across the 1st Diag, to 17 MARLENE for 0:10 (min:sec). 10:11:12 Balloon removed over the wire. 10:15:32 Place stent Inflation Number: 9 A JANI RX 2.0 x 30 stent ([id number]) was prepped and advanced across the 1st Diag. The stent was deployed at 13 MARLENE for 0:10 (min:sec). 10:16:28 EXOSEAL 6Fr (EX600) opened to sterile field. 10:16:34 Stent balloon re-inserted over wire. 10:16:42 Wire removed. 10:16:43 Guide catheter removed. 10:16:49 Sheath removed intact; hemostasis achieved with Exoseal to the Right Femoral artery. 10:16:51 Procedure ended.(Physican Out) 10:19:38 Fluoroscopy time 16.40 minutes. 10:19:43 Flurop Dose total: 2256 10:19:43 Fluoroscopy dose: 2256 mGy 10:19:50 Contrast amount:Isovue 370 149ml. 10:21:44 Sharps counted by scrub and verified by R.N. 10:21:53 Insertion/operative site no bleeding no hematoma. 10:21:55 Post-op/insertion site Right Femoral artery dressed using a 4 x 4 and Tegaderm. 10:22:51 Post right femoral artery:stable, soft, clean and dry 10:22:52 Post Procedure Pulses reassessed and unchanged 10:22:55 Post-procedure physical assessment completed. ASA score P 2 - A patient with mild systemic disease as per Jake Hamilton MD. 10:22:58 Post procedure rhythm: unchanged. 10:23:00 Estimated blood loss: 10 ml 10:23:02 Post procedure instruction explained to patient.Patient verbalizes understanding. 10:23:02 Patient needs reinforcement of post procedure teaching. 10:24:10 Procedure type changed to Cath procedure, Diagnostic procedure, LHC, LHC w/Coronaries, Sedation Charges, Moderate Sedation up to 30 minutes, PCI procedure, Coronary Stent, Coronary Stent Initial, Coronary Stent Additional, Peripheral Cath Diagnostic Procedure, Abd/Extremity, Renal, Bilat Renal Arteriogram 10:24:49 Procedure and supply charges have been captured, reviewed, submitted and are correct. 10:24:51 Procedure Complication : No complications 10:24:53 Vital chart was stopped 10:24:53 See physician's report for complete and final results. 10:24:56 Report given to CVICU. 10:24:59 Patient transfered to CVICU with Stretcher. 10:25:00 Procedure ended. 10:25:00 Full Disclosure recording stopped 10:25:05 End room use (Document Last) Intervention Summary Intervention Notes Time ActionType Lesion and Equipment Used Action# Pressure Duration Attributes 9:54:41 Inflate Prox CX EMERGE OTW 1.5 1 21 00:10 balloon x 15 balloon ([id number]) 9:56:31 Inflate Prox CX EMERGE OTW 3.0 2 13 00:10 balloon x 12 balloon ([id number]) 9:56:45 Reinflate Prox CX EMERGE OTW 3.0 3 13 00:10 balloon x 12 balloon ([id number]) 9:59:13 Place stent Prox CX JANI OTW 3.0 x 4 13 00:10 08 stent ([id number]) 10:03:32 Discard EMERGE OTW 1.5 Balloon x 15 balloon ([id number]) 10:07:12 Reinflate 1st Diag EMERGE OTW 3.0 1 15 00:10 balloon x 12 balloon ([id number]) 10:07:21 Reinflate 1st Diag EMERGE OTW 3.0 2 15 00:10 balloon x 12 balloon ([id number]) 10:09:52 Inflate 1st Diag EMERGE OTW 1.5 3 20 00:10 balloon x 15 balloon ([id number]) 10:10:05 Reinflate 1st Diag EMERGE OTW 1.5 6 13 00:10 balloon x 20 balloon ([id number]) 10:10:05 Reinflate 1st Diag EUPHORA 2.0 x 5 15 00:10 balloon 20 Balloon ([id number]) 10:10:14 Inflate 1st Diag EUPHORA 2.0 x 4 15 00:10 balloon 20 Balloon ([id number]) 10:10:28 Reinflate 1st Diag EMERGE OTW 1.5 6 13 00:10 balloon x 20 balloon ([id number]) 10:10:43 Reinflate 1st Diag EMERGE OTW 1.5 8 17 00:10 balloon x 20 balloon ([id number]) 10:15:32 Place stent 1st Diag JANI RX 2.0 x 9 13 00:10 30 stent ([id number]) Device Usage Item Name Manufacture Quantity Catalog Number Hospital Part Current Minimal Lot# / Charge Number Stock Stock Serial# Code ACIST Syringe Acist 1 41184 057683 788969 [id number] 20 (64112) Medical Systems [employer]metics Bag Decanter Microtek 1 2001S 390258 47350 381473 5 (2001S) Medical Inc. ACIST Hand Acist 1 54667 933478 907549 959905 5 Control (18308) Medical Systems [employer] ACIST Manifold Acist 1 01443 061539 389312 083173 5 (31753) Medical Systems Inc Tegaderm 4 x 4 3M 1 1626W 450412 610703 333635 5 (1626W) PERCUTANEOUS Cook Medical 1 E84725 289041 884820 5 ENTRY 19GA needle Medline Cath Cardinal 1 [id number] 722535 07669 277755 5 Pack Health ([id number]) DIAGNOSTIC WIRE [facility] 1 003380 953273 162145 579325 30 .035 260cm J wire (272922) DIAGNOSTIC Cardinal 1 SE5859 539692 36891 805579 30 Multipack 5Fr Health catheter set (UK5849) SHEATH Prelude Merit 1 FSB-1O-32-035 708674 910875 784401 5 5Fr 0.035 Medical (YBZ-6U-57-035) MULTIPACK Cardinal 1 435807 5 Pigtail 5 Fr Health catheter MULTIPACK JL Cardinal 1 629564 5 4.0 5Fr Health catheter MULTIPACK 3DRC Cardinal 1 118951 5 5Fr catheter Health SHEATH Prelude Merit 1 UBH-2L-16-35 437854 7988770 065763 5 6Fr 0.035 Medical (OFI-2J-30-035) CHOICE PT Extra [place] 2 [id number] 609828 571533 768311 5 Support J 300cm Scientific guide wire ([id number]) INFLATOR Merit Merit 1 ZM2662 152910 603929 524501 15 [place]pe[place] (MY7549) GUIDE 6FR XB Cardinal 1 00455209 485461 027462 401255 2 4.0 catheter Health ([id number]) EMERGE OTW 1.5 [place] 1 [id number] 192362 704415 115239 5 79407591 x 15 balloon Scientific ([id number]) EMERGE OTW 3.0 [place] 1 [id number] 250935 621229 744508 5 [id number] x 12 balloon Scientific ([id number]) CHOICE PT Extra [place] 1 [id number] 921283 486729 952141 5 Support 182cm Scientific wire ([id number]) JANI OTW 3.0 x Medtronic 1 [id number] 744251 6929174 859004 5 [id number] 08 stent ([id number]) EMERGE OTW 1.5 [place] 1 [id number] 961442 779657 295026 5 [id number] x 20 balloon Scientific ([id number]) EUPHORA 2.0 x Medtronic 1 [id number] 697452 981109 083913 5 [id number] 20 Balloon ([id number]) JANI RX 2.0 x Medtronic 1 [id number] 161130 546719 563040 5 [id number] 30 stent ([id number]) EXOSEAL 6Fr Cardinal 1 EX600 330737 661051 003304 10 (EX600) Health Signature Audit [place] Stage Time Signature Unsigned Intra-Procedure 12/12/2017 Ho Dowd 10:27:09 AM RT(R) Signatures Monitor : Ho Dowd RT Signature : Date : Time : [facility] [address] [place] [address]
--- NOTE | ~2017-12-11 | CN ---
PATIENT NAME:RAVI BAH JR MEDICAL RECORD: [id number] : 47 LOCATION:[facility].CV02 ADMIT DATE: 12/11/17 ACCOUNT: [id number] CONSULTING PHYSICIAN: JOHN ANTOINE MD REFERRING PHYSICIAN: ORIN WALLER MD DATE OF CONSULTATION: 12/12/2017 Cardiology Consultation DIAGNOSES: 1. Unstable angina. 2. Coronary artery disease. 3. Previous percutaneous transluminal coronary angioplasty stent. 4. Cardiomyopathy. 5. Hypertension. 6. Hyperlipidemia. HISTORY OF PRESENT ILLNESS: This is a gentleman known to us with past history of coronary artery disease, recent PTCA stent left main and RCA, now presents with recurrent anginal symptomatology. He has concomitant disease of the circumflex as well as LAD diagonal. It was not addressed at the time of the last intervention. REVIEW OF SYSTEMS: The patient reports easy bruising but reports no swollen glands. The patient reports no fever, no night sweats, no significant weight gain, no significant weight loss. No significant exercise tolerance. The patient reports no dry eyes, no irritation, no vision change. Patient reports no difficulty hearing and no ear pain. Patient reports no frequent nose bleeds or nose and sinus problems. Patient reports on arm pain on exertion. No shortness of breath while lying down. No history of heart murmur. Patient reports no cough, no wheezing or coughing up blood. Patient reports no abdominal pain, no vomiting. Normal appetite. No diarrhea and not vomiting blood. No nausea and no constipation. Patient reports no incontinence. No difficulty urinating. No hematuria. No increased frequency. Patient reports no muscle aches. No weakness, no arthralgias, no back pain. No swelling of the extremities. Patient reports no abnormal mole, no jaundice, no rashes. Reports no loss of consciousness. No weakness and no numbness. No seizures, dizziness, or headaches. The patient reports no depression, no sleep disturbance, feeling safe in a relationship and no alcohol abuse. Patient reports on fatigue. Reports no runny nose or sinus pressure. No itching, no hives, and no frequent sneezing. PHYSICAL EXAMINATION: GENERAL APPEARANCE: Well-nourished, well-developed, appears stated age. Level of distress, comfortable. PSYCHIATRIC: Mental status, alert, normal affect. Orientation, oriented to time, place and person. EYES: Lids and conjunctiva, noninjected. No discharge, no pallor. ENT: Lips, teeth, gums, normal dentition. Oropharynx, no cyanosis, no pallor. NECK: Carotid arteries, bilateral normal upstroke, no bruits, no thrills. JUGULAR VEINS: No jugular venous pressure or distention. CERVICAL LYMPH NODES: Nontender, nonenlarged. THYROID: Not enlarged. Nontender. No nodules. LUNGS: Respiratory effort, unlabored. CHEST: Normal curvature. No thoracic deformity. No chest wall tenderness. CONSULT REPORT [id number] RAVI BAH JR Percussion, resonant. Auscultation, clear. No wheezes, no rales, no rhonchi. CARDIOVASCULAR: Precordial exam, nondisplaced. No heaves or pericardial thrills. Rate and rhythm, regular. Heart sounds, normal S1, normal S2. No S3, no gallop, no rub. Systolic murmur, not heard. Diastolic murmur, not heard. EXTREMITIES: No cyanosis, no edema. Peripheral pulses, full and equal in all extremities, except as noted. No bruits appreciated. ABDOMEN: Soft, nondistended. Normal aorta. No bruit. Nontender. No masses. Liver, nontender, no hepatomegaly. Spleen, nontender, no splenomegaly. MUSCULOSKELETAL: No joint tenderness. No joint swelling. No erythema. NEUROLOGICAL: Normal gait, normal strength, normal tone. SKIN: Warm and dry. OVERALL IMPRESSION: We will proceed with repeat coronary angiography. Check patency of the left main as well as the RCA. If these are patent, we will proceed with transcatheter revascularization of the circumflex and diagonal. TRANSINT:[id number] Voice Confirmation ID: [id number] DOCUMENT ID: [id number] JOHN ANTOINE MD at 1848 CC: [id number] DICTATION DATE: 12/12/17 1022 TREATER HELPER: 12/12/17 1256 DIS IN 12/13/17 [address] [place] [address]
--- NOTE | ~2017-12-11 | HP ---
PATIENT: RAVI BAH JR MEDICAL RECORD: [id number] ACCOUNT: [id number] LOCATION:[facility] D.CV02 : 46 ADMISSION DATE: 12/11/17 HISTORY AND PHYSICAL EXAMINATION HISTORY OF PRESENT ILLNESS: Mr. Bah is a 72-year-old patient who underwent angioplasty and stenting of his coronary arteries multiple times. The last was at [facility] by Dr. Hamilton. The patient did well until recently. His blood pressure was out of control and quite elevated with a diastolic pressure almost 120. He developed chest pain and shortness of breath with this and was seen by cardiology in [place], [place]. He developed severe crushing chest pain last night, relieved with nitroglycerin. He will be admitted for further workup and consultation with Dr. Hamilton. PAST MEDICAL HISTORY: Coronary artery disease with multiple stents. FAMILY HISTORY: Positive for atherosclerotic cardiovascular disease. REVIEW OF SYSTEMS: GENERAL: The patient has easy bruising, but no hemorrhage. The patient reports no fever or night sweats. He does have shortness of breath. The patient has exercise intolerance and arm pain with exertion. HEENT: No visual disturbances. No amaurosis fugax. He does have decreased auditory acuity. He has chest pain and shortness of breath with minimal exercise. He has some orthopnea. RESPIRATORY: No cough, shortness of breath. No wheezing. No sputum production. ABDOMEN: No nausea, vomiting, diarrhea, hematemesis or melena. GENITOURINARY: No frequency or painful urination. EXTREMITIES: Easy fatigability, but no claudication. PHYSICAL EXAMINATION: GENERAL: A well-developed, overweight white male in no acute distress. SKIN: Warm and dry. HEAD: Normocephalic. EYES: Pupils equal, round, and react to light and accommodation. Extraocular muscles intact. ENT: Moist pink buccal mucosa. NECK: Supple, nontender, without abnormal mass or organomegaly. No jugular venous distention. No carotid bruits. CHEST: Normal AP diameter. LUNGS: Clear to auscultation and percussion. HEART: In a regular rhythm without any murmur, rub or gallop. ABDOMEN: Soft, nontender. No abnormal mass or organomegaly. Bowel sounds are active. GENITOURINARY AND RECTAL: Deferred. EXTREMITIES: No clubbing, cyanosis or edema. Good peripheral pulses. NEUROLOGICAL: Mental status normal. Cranial nerves II through XII normal. Motor normal. Sensory normal. IMPRESSION: 1. Intermediate coronary syndrome and unstable angina. 2. Dyspnea. 3. History of cardiomyopathy. 4. Hypertension. HISTORY AND PHYSICAL [id number] RAVI BAH JR After examining the patient, reviewing his history and physical, I think that he would benefit from hospitalization for intermediate coronary syndrome and cardiac catheterization. I think that he would also benefit from pulmonary evaluation. TRANSINT:[id number] Voice Confirmation ID: [id number] DOCUMENT ID: [id number] ORIN WALLER MD at 1358 CC: [id number] DICTATION DATE: 12/11/17 1452 SCHEDULING ASSISTANT: 12/11/17 1534 ADM IN [place] [address] [place] [address]
--- NOTE | ~2017-12-11 | EC ---
PATIENT:RAVI BAH JR DATE OF SERVICE: 12/11/17 SEX: M MEDICAL RECORD: [id number] DATE OF : 47 LOCATION:[place] [address] AGE OF PATIENT: 72 ADMISSION DATE: 12/11/17 REFERRING PHYSICIAN: INTERPRETING PHYSICIAN: JOHN HAMILTON MD ECHOCARDIOGRAM REPORT ECHO CHARGES 4 ECHO COMPLETE Date: 12/12 CLINICAL DIAGNOSIS: CHF/SOB ECHOCARDIOGRAPHIC MEASUREMENTS (adult normal given) AC root (d.<3.7cm) 3.2 cm LV Septum d (<1.2 cm> 1.4 cm Valve Excursion 2.0 cm LV Septum (systole) 1.5 cm Left Atria (s.<4.0cm> 4.1 cm LVPW d(<1.2cm) 1.1 cm RV (d.<2.3cm) 2.5 cm LVPW (sytole) 1.5 cm LV diastole(<5.6CM) 6.3 cm MV E-F(>70mm/sec) cm LV systole 4.8 cm LVOT Diameter 1.9 cm MV exc.(>10mm) cm Est.ejection fraction (50-75%) % DOPPLER: LVIT cm/sec A 48.0 cm/sec E 130 cm/sec LA cm/sec RVSP 22.0 mmHg LVOT 92.0 cm/sec AOP1/2T m/s Asc. Ao 137 cm/sec RVOT 73.0 cm/sec RA cm/sec PA 81.0 cm/sec AV Gradient Peak 7.6 mmHg AV Mean 3.4 mmHg AV Area 2.0 cm MV Gradient Peak 8.1 mmHg MV Mean 2.4 mmHg MV Area cm COMMENTS: Qa Engineer: An MUELLEROE Servicer: 1 Dr. Hamilton TAPE# PACS Pericardial Effusion N DATE OF SERVICE: 12/12/2017 Echocardiogram FINDINGS: 1. Left ventricular chamber size is mildly dilated. Left ventricular systolic function is markedly reduced, overall ejection fraction in the 20% range. 2. Left atrium is enlarged at 4.1 cm. Right atrium and right ventricular chamber sizes are as well mildly dilated. 3. Valvular structures have normal structure and motion. ECHOCARDIOGRAM REPORT [id number] RAVI BAH JR 4. Doppler interrogation reveals moderate mitral regurgitation, trace tricuspid regurgitation, no other valvular insufficiency or stenosis. Pulmonary systolic pressure is estimated 22 mmHg. 5. No evidence of pericardial effusion or left ventricular thrombus. TRANSINT:[id number] Voice Confirmation ID: [id number] DOCUMENT ID: [id number] JOHN HAMILTON MD at 1848 CC: [id number] DICTATION DATE: 12/14/17 1005 [employer]ARM[employer]ICAL PL[employer] OPERATOR: 12/14/17 1414 DIS IN 12/13/17 [place] [id number] [place] [id number]
[~2017-12-11 16:40] MED LIST: BAYER CHEWABLE81 MG PO; BREO ELLIPTA 21 EACH; COREG 3.1253.125 MG PO; EFFIENT5 MG PO; ENTRESTO 24 MG1 EACH PO; GLIMEPIRIDE1 MG PO; KLOR-CON M2020 MEQ PO; LASIX40 MG PO; NITROQUICK0.4 MG SL; RED YEAST RICE600 MG PO; [UNRECOGNIZED DRUG - OTHER] PO
[2017-12-11] MEDS ORDERED: ISOSORBIDE MONO60 M1 PO (17:19)
[2017-12-11] MEDS ORDERED: MICARDIS20 MG PO (17:20)
[2017-12-11 17:44] LABS: HEMATOCRIT 37.3 % (42.0-54.0); HEMOGLOBIN 12.7 g/dL (13.5-17.5); MCH 31.4 pg (26.0-34.0); MCV 92.3 fL (80.0-100.0); MEAN PLATELET VOLUME 10.4 fL (7.4-10.4); RBC 4.04 10x6/uL (4.20-6.10); RDW 12.6 % (11.5-14.5); WBC 8.6 10x3/uL (4.8-10.8)
[2017-12-11 18:02] LABS: CALC OSMOLALITY 281 mosm/kg (275-300); CALCIUM 8.9 mg/dL (8.5-10.1); CARBON DIOXIDE 23.5 mmol/L (21.0-32.0); CHLORIDE - SERUM 107 mmol/L (98-107); CREATININE - SERUM 1.1 mg/dL (0.6-1.3); GLUCOSE 133 mg/dL (74-106); POTASSIUM - SERUM 3.6 mmol/L (3.5-5.1); SODIUM 140 mmol/L (136-145); UREA NITROGEN 16 mg/dL (7-18); eGFR NON AFRICAN AMERICAN 70 mL/min (90-120)
[2017-12-11 18:07] LABS: TROPONIN-I < 0.017 ng/mL (0.000-0.060)
[2017-12-12] VITALS (28 sets, daily range): BP systolic 92–154; BP diastolic 40–686; Ht 170.2 cm; Wt 130.2 kg
[2017-12-12 05:38] LABS: BASOPHILS 0 % (0-2); EOSINOPHILS 0 % (0-7); HEMATOCRIT 38.3 % (42.0-54.0); HEMOGLOBIN 12.6 g/dL (13.5-17.5); IMMATURE GRANULOCYTES 0.3 % (0-5); LYMPHOCYTES 17.2 % (15-50); MCH 30.4 pg (26.0-34.0); MCHC 32.9 g/dL (31.0-37.0); MCV 92.3 fL (80.0-100.0); MEAN PLATELET VOLUME 10.6 fL (7.4-10.4); MONOCYTES 1.5 % (2-11); PLATELET COUNT 229 10x3/uL (130-400); RBC 4.15 10x6/uL (4.20-6.10); RDW 12.6 % (11.5-14.5); WBC 7.5 10x3/uL (4.8-10.8)
[2017-12-12 06:01] LABS: ANION GAP 13.8 mmol/L (8-16); CALCIUM 8.9 mg/dL (8.5-10.1); CARBON DIOXIDE 25.4 mmol/L (21.0-32.0); CREATININE - SERUM 1.1 mg/dL (0.6-1.3)
[2017-12-12 06:02] LABS: POTASSIUM - SERUM 4.2 mmol/L (3.5-5.1)
[2017-12-12 06:03] LABS: INR 1.16 (0.85-1.17); PROTIME 14.4 SECONDS (11.6-15.0)
[2017-12-12 08:10] LABS: PLT FUNCT.(P2Y12) PLAVIX 137 PRU (194-418)
[2017-12-13] VITALS (14 sets, daily range): BP systolic 90–137; BP diastolic 47–79
[2017-12-13] MEDS ORDERED: ENTRESTO 24 MG1 EACH PO (13:46)
== END 2017-12-13 16:13 | disposition home or self-care (01) | DRG 247 ==
LOC: D.CVICU 16:40
PROVIDERS: Internal Medicine Cardiovascular Disease; Internal Medicine Interventional Cardiology
PROC: B2151ZZ Fluoroscopy of Left Heart using Low Osmolar Contrast (ICD-10-PCS; 2017-12-12)
PROC: 4A023N7 Measurement of Cardiac Sampling and Pressure, Left Heart, Percutaneous Approach (ICD-10-PCS; 2017-12-12)
PROC: 027135Z Dilation of Coronary Artery, Two Arteries with Two Drug-eluting Intraluminal Devices, Percutaneous Approach (ICD-10-PCS; principal; 2017-12-12 08:00)
PROC: B2111ZZ Fluoroscopy of Multiple Coronary Arteries using Low Osmolar Contrast (ICD-10-PCS; 2017-12-12 08:00)
DX: I25.110 Atherosclerotic heart disease of native coronary artery with unstable angina pectoris (principal); I50.22 Chronic systolic (congestive) heart failure; I11.0 Hypertensive heart disease with heart failure; I42.9 Cardiomyopathy, unspecified; E78.5 Hyperlipidemia, unspecified; E11.9 Type 2 diabetes mellitus without complications; G47.30 Sleep apnea, unspecified; R06.00 Dyspnea, unspecified